=== PATIENT | male | born 1945 | race Caucasian/White ===

== ENCOUNTER 2024-02-03 11:13 | Emergency (ER) | payer OTHER ==
[2024-02-03] MEDS ORDERED: ONDANSETRON 4 MG/2 ML VIAL ONE (11:37)
[2024-02-03] MEDS ORDERED: FENTANYL CITR 100 MCG/2 ML ONE (11:37)
[2024-02-03] MEDS ORDERED: KETOROLAC 30 MG/ML INJ ONE (11:37)
[2024-02-03] MEDS ORDERED: dexAMETHasone 10 MG/ML VIAL ONE (11:37)
[2024-02-03] MEDS ORDERED: NA CHLORIDE 0.9% 500 ML ONE (11:38)
[2024-02-03 12:10] LABS: Absolute Basophils 0.1 K/uL (0-0.5); Absolute Eosinophils 0.2 K/uL (0-0.5); Absolute Lymphocytes (CBC) 1.6 K/uL (0.7-4.9); Absolute Monocytes 1.2 K/uL (0.1-1.3); Absolute Neutrophil 7.7 K/uL (1.8-8.0); Basophils % 0.5 % (0-1.3); Eosinophils % 2.2 % (0-4.4); Hematocrit 39.6 % (39.6-49.0); Hemoglobin 12.9 g/dL (13.6-17.9); Lymphocytes % 14.4 % (15.3-44.8); MCH 32.5 pg (27.0-35.0); MCHC 32.7 g/dL (32.0-36.0); MCV 99.2 fL (80-100); MPV 7.2 fL (7.6-11.3); Monocytes % 11.5 % (3.3-12.3); Neutrophils % 71.4 % (41.7-73.7); Nucleated Red Blood Cells % 0.3 % (0-0); Platelets 410 thou/uL (152-406); RBC Red Blood Cell Count 3.99 M/uL (4.33-5.43); Red Cell Distribution Width 13.7 % (12.1-15.2)
[2024-02-03 12:26] LABS: Albumin 3.3 g/dL (3.4-5.0); Albumin/Globulin Ratio 0.8 (1.1-1.8); Anion Gap 9.6 mEq/L (5.0-15.0); Bilirubin Total 0.4 mg/dL (0.2-1.0); Potassium 3.6 mEq/L (3.5-5.1); Protein, Total 7.3 g/dL (6.4-8.2)
--- NOTE | 2024-02-03 12:30 | RAD REPORT ---
EXAM DESCRIPTION: RAD - Wrist Right 3 View - 02/03/2024 12:20 pm CLINICAL HISTORY: PAIN COMPARISON: No comparisons FINDINGS/IMPRESSION: No acute fracture. 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
--- NOTE | 2024-02-03 13:32 | EDPHYS ---
Physician Documentation [facility] Name: Babak Mancini Age: 78 yrs Sex: Male : 1945 Arrival Date: 02/03/2024 Time: 11:13 Bed 5 Private MD: THOM Physician Raul Haywood HPI: 02/02 13:18 This 78 yrs old Male presents to ER via Ambulatory with complaints of wrist yesica swelling. 13:18 The patient or guardian reports decreased range of motion, pain, swelling, tenderness. yesica The complaints affect the right wrist diffusely. Historical: - Allergies: 11: No Known Allergies; aa5 - PMHx: :29 Hypertensive disorder; Diabetes mellitus; "leaking mitral valve"; aa5 - Immunization history:: Adult Immunizations unknown. - Infectious Disease History:: Denies. - Social history:: Smoking status: Patient denies any tobacco usage or history of. ROS: 13:25 Constitutional: Negative for fever, chills, and weight loss, Eyes: Negative for injury, yesica pain, redness, and discharge, ENT: Negative for injury, pain, and discharge, Neck: Negative for injury, pain, and swelling, Cardiovascular: Negative for chest pain, palpitations, and edema, Respiratory: Negative for shortness of breath, cough, wheezing, and pleuritic chest pain, Exam: 13:28 Constitutional: This is a well developed, well nourished patient who is awake, alert, yesica and in no acute distress. Head/Face: Normocephalic, atraumatic. Eyes: Pupils equal round and reactive to light, extra-ocular motions intact. Lids and lashes normal. Conjunctiva and sclera are non-icteric and not injected. Cornea within normal limits. Periorbital areas with no swelling, redness, or edema. ENT: Nares patent. No nasal discharge, no septal abnormalities noted. Tympanic membranes are normal and external auditory canals are clear. Oropharynx with no redness, swelling, or masses, exudates, or evidence of obstruction, uvula midline. Mucous membranes moist. Neck: Trachea midline, no thyromegaly or masses palpated, and no cervical lymphadenopathy. Supple, full range of motion without nuchal rigidity, or vertebral point tenderness. No Meningismus. Chest/axilla: Normal chest wall appearance and motion. Nontender with no deformity. No lesions are appreciated. Cardiovascular: Regular rate and rhythm with a normal S1 and S2. No gallops, murmurs, or rubs. Normal PMI, no JVD. No pulse deficits. Respiratory: Lungs have equal breath sounds bilaterally, clear to auscultation and percussion. No rales, rhonchi or wheezes noted. No increased work of breathing, no retractions or nasal flaring. Abdomen/GI: Soft, non-tender, with normal bowel sounds. No distension or tympany. No guarding or rebound. No evidence of tenderness throughout. Back: No spinal tenderness. No costovertebral tenderness. Full range of motion. Male : Normal genitalia with no discharge or lesions. Skin: Warm, dry with normal turgor. Normal color with no rashes, no lesions, and no evidence of cellulitis. Neuro: Awake and alert, GCS 15, oriented to person, place, time, and situation. Cranial nerves II-XII grossly intact. Motor strength 5/5 in all extremities. Sensory grossly intact. Cerebellar exam normal. Normal gait. Psych: Awake, alert, with orientation to person, place and time. Behavior, mood, and affect are within normal limits. 13:28 Musculoskeletal/extremity: Extremities: grossly normal except: decreased ROM, erythema, pain, ROM: full active range of motion, full passive range of motion, limited active range of motion due to pain, limited passive range of motion due to pain, Circulation is intact in all extremities. Sensation intact. Compartment Syndrome exam of affected extremity: is normal. Joints: effusion, pain at rest, painful range of motion, swelling, tenderness, Weight bearing: able to fully bear weight, Tendon exam: Vital Signs: 11:28 BP 145 / 69; Pulse 62; Resp 18 S; Temp 97.8(TE); Pulse Ox 100% on R/A; Weight 108.86 kg aa5 (R); Height 6 ft. 0 in. (R); 13:25 BP 142 / 62; Pulse 64; Resp 18; Pulse Ox 99% ; nj1 11:28 Body Mass Index 32.55 (108.86 kg, 182.88 cm) aa5 MDM: 11:25 Patient medically screened. [facility] 13:29 Differential diagnosis: closed fracture, contusion, abrasion, tendonitis. Data [facility] reviewed: vital signs, nurses notes, lab test result(s), radiologic studies, plain films. Consideration of Admission/Observation Escalation of care including admission/observation considered. I considered the following discharge prescriptions or medication management in the emergency department Medications were administered in the Emergency Department. See MAR. Independent interpretation of the following test(s) in the Emergency Department X-Ray: My interpretation is no fx , no gas. Test considered but Not performed: CT: no ct wrist. Historians other than the Patient: Spouse/Significant Other: well informed. Care significantly affected by the following chronic conditions: Diabetes, Hypertension. 02/02 11:26 Order name: CBC with Diff; Complete Time: 12:59 [facility] 02/02 11:26 Order name: Comprehensive Metabolic Panel; Complete Time: 12:59 [facility] 02/02 11:33 Order name: Uric Acid; Complete Time: 12:59 [facility] 02/02 11:33 Order name: Wrist Right 3 View XRAY; Complete Time: 12:59 [facility] 02/02 11:33 Order name: Ice pack; Complete Time: 12:11 [facility] 02/02 13:18 Order name: Splint - Volar Wrist Splint: velcro; Complete Time: 13:24 [facility] Administered Medications: 11:31 CANCELLED (Duplicate Order): [id number] mg IVP once [facility] 11:32 CANCELLED (Duplicate Order): [id number] mg IVP once; dilute with 10 mL 0.9% NaCl; [facility] give over 2 minutes 11:32 CANCELLED (Duplicate Order): [id number] mg IVP once [facility] 11:32 CANCELLED (Duplicate Order): [id number] mg PO once [facility] 11:50 Drug: NS 0.9% IV 500 ml IV at bolus once Route: IV; Rate: bolus; Site: left antecubital;nj1 12:43 Follow up: Response: No adverse reaction; IV Status: Completed infusion; IV Intake: nj1 500ml 11:51 Drug: Ketorolac IVP 15 mg IVP once Route: IVP; Site: left antecubital; nj1 12:43 Follow up: Response: No adverse reaction nj1 11:52 Drug: Ondansetron IVP 4 mg IVP once; over 2 minutes Route: IVP; Site: left antecubital; nj1 12:43 Follow up: Response: No adverse reaction nj1 11:54 Drug: Decadron - Dexamethasone IVP 10 mg IVP once Route: IVP; Site: left antecubital; nj1 12:43 Follow up: Response: No adverse reaction nj1 11:55 Drug: fentaNYL (PF) IVP 25 mcg IVP once Route: IVP; Site: left antecubital; nj1 12:43 Follow up: Response: No adverse reaction; Pain is unchanged, physician notified nj1 Disposition Summary: 02/03/24 13:31 Discharge Ordered Notes: Location: Home [facility] Problem: new yesica Symptoms: have improved yesica Condition: Stable yesica Diagnosis - Pain in right wrist - inflamatory, arthritis yesica Followup: yesica - With: Private Physician - When: 2 - 3 days - Reason: Recheck today's complaints, Continuance of care, Re-evaluation by your physician Discharge Instructions: - Discharge Summary Sheet yesica - Joint Pain yesica - Arthritis yesica - Musculoskeletal Pain yesica - Wrist Pain, Adult yesica - How to Use Cold Therapy, Wstt-yb-Ibnj yesica - Wrist Pain, Adult, Jshq-yd-Kebb yesica - Arthritis, Rw[place]-ge-Tmeq yesica Forms: - Medication Reconciliation Form yesica - Antibiotic Education yesica - Prescription Opioid Use yesica - Patient Portal Instructions [facility] - Leadership Thank You Letter [facility] Prescriptions: - acetaminophen-codeine 300-30 mg Oral tablet - take 2 tablet ORAL route every 6 hours as needed for pain; 20 tablet; Refills: yesica 0, Product Selection Permitted - dexamethasone 4 mg Oral tablet - take 1 tablet ORAL route daily; 4 tablet; Refills: 0, Product Selection yesica Permitted - diclofenac sodium 50 mg Oral tablet, delayed release (enteric coated) - take 1 tablet ORAL route every 12 hours; 14 tablet; Refills: 0, Product yesica Selection Permitted Signatures: Dispatcher [employer] EDMS Raul Haywood MD MD cha Calderon, Audri, RN RN aa5 Alka Obando RN RN nj1 Corrections: (The following items were deleted from the chart) 11:26 11:26 CBC+H.LAB.BRZ ordered. EDVA EDMS 11: 11:26 COMPREHENSIVE METABOLIC PANEL+C.LAB.BRZ ordered. EDVA EDMS 11:31 11:26 MethylPrednisoLONE IVP 125 mg IVP once ordered. [facility] 11:32 11:26 Famotidine IVP 40 mg IVP once; dilute with 10 mL 0.9% NaCl; give over 2 minutes yesica ordered. [facility] 11:32 11:26 diphenhydrAMINE IVP 50 mg IVP once ordered. [facility] 11:26 predniSONE PO 60 mg PO once ordered. [facility] 11:33 URIC ACID+C.LAB.BRZ ordered. EDMS EDMS
--- NOTE | 2024-02-03 13:32 | ER ---
Nurse's Notes [facility] Name: Babak Mancini Age: 78 yrs Sex: Male : 1945 Arrival Date: 02/03/2024 Time: 11:13 Bed 5 Private MD: Diagnosis: Pain in right wrist-inflamatory, arthritis Presentation: 02/02 11:27 Chief complaint: Patient states: "I think I am having an allergic reaction to cipro aa5 because my right wrist started swelling up last night". Pt denies known injury. Coronavirus screen: At this time, the client does not indicate any symptoms associated with coronavirus-19. Ebola Screen: Patient denies travel to an Ebola-affected area in the 21 days before illness onset. 11:27 Method Of Arrival: Ambulatory aa5 11:28 Initial Sepsis Screen: Does the patient meet any 2 criteria? No. Patient's initial aa5 sepsis screen is negative. Does the patient have a suspected source of infection? No. Patient's initial sepsis screen is negative. Risk Assessment: Do you want to hurt yourself or someone else? Patient reports no desire to harm self or others. Onset of symptoms was January 2024. 11:28 Acuity: ADA 3 aa5 Historical: - Allergies: 11:29 No Known Allergies; aa5 - PMHx: 11:29 Hypertensive disorder; Diabetes mellitus; "leaking mitral valve"; aa5 - Immunization history:: Adult Immunizations unknown. - Infectious Disease History:: Denies. - Social history:: Smoking status: Patient denies any tobacco usage or history of. Screenin:[address] [facility] ED Fall Risk Assessment (Adult) History of falling in the last 3 months, nj1 including since admission No falls in past 3 months (0 pts) Confusion or Disorientation No (0 pts) Intoxicated or Sedated No (0 pts) Impaired Gait No (0 pts) Mobility Assist Device Used No (0 pt) Altered Elimination No (0 pt) Score/Fall Risk Level 0 - 2 = Low Risk Oriented to surroundings, Maintained a safe environment, Hourly rounding (assess needs \\T\\ fall precautionary measures) done. Abuse screen: Denies threats or abuse. Denies injuries from another. Nutritional screening: No deficits noted. Tuberculosis screening: No symptoms or risk factors identified. Assessment: 11:45 General: Appears in no apparent distress. comfortable, Behavior is calm, cooperative, nj1 appropriate for age. 11:45 Pain: Complains of pain in right wrist Pain currently is 9 out of 10 on a pain scale. nj1 Neuro: Level of Consciousness is awake, alert, obeys commands, Oriented to person, place, time, situation. Cardiovascular: Patient's skin is warm and dry. Respiratory: Airway is patent Respiratory effort is even, unlabored. GI:. Musculoskeletal: Range of motion: limited in right wrist Swelling absent present in right wrist. 12:42 Reassessment: Patient appears in no apparent distress at this time. No changes from nj1 previously documented assessment. Patient and/or family updated on plan of care and expected duration. Pain level reassessed. Patient is alert, oriented x 3, equal unlabored respirations, skin warm/dry/pink. 13:24 Reassessment: Patient appears in no apparent distress at this time. Patient is alert, nj1 oriented x 3, equal unlabored respirations, skin warm/dry/pink. Patient states feeling better. Vital Signs: 11:28 BP 145 / 69; Pulse 62; Resp 18 S; Temp 97.8(TE); Pulse Ox 100% on R/A; Weight 108.86 kg aa5 (R); Height 6 ft. 0 in. (R); 13:25 BP 142 / 62; Pulse 64; Resp 18; Pulse Ox 99% ; nj1 11:28 Body Mass Index 32.55 (108.86 kg, 182.88 cm) aa5 ED Course: 11:15 Patient arrived in ED. ts1 11:25 Raul Haywood MD is Attending Physician. yesica 11:27 Arm band placed on. aa5 11:28 Triage completed. aa5 11:32 Alka Obando, ARLYN is Primary Nurse. nj1 11:50 Patient has correct armband on for positive identification. Bed in low position. Call [facility] light in reach. Adult w/ patient. Provided Education on: call light, fall precautions. 11:50 Inserted saline lock: 22 gauge in left antecubital area, using aseptic technique. Blood [facility] collected. 12:12 Ice pack. nj1 12:22 Wrist Right 3 View XRAY In Process Unspecified. EDMS 12:45 Notified ED physician of other patient ready to talk to physician so he can go to the [address] 13:24 Velcro wrist splint applied to right wrist. nj1 13:25 No provider procedures requiring assistance completed. nj1 13:25 IV discontinued, intact, bleeding controlled, Pressure dressing applied. nj1 Administered Medications: 11:31 CANCELLED (Duplicate Order): [id number] mg IVP once [facility] 11:32 CANCELLED (Duplicate Order): [id number] mg IVP once; dilute with 10 mL 0.9% NaCl; yesica give over 2 minutes 11:32 CANCELLED (Duplicate Order): mg IVP once yesica 11:32 CANCELLED (Duplicate Order): [id number] mg PO once yesica 11:50 Drug: NS 0.9% IV 500 ml IV at bolus once Route: IV; Rate: bolus; Site: left antecubital;nj1 12:43 Follow up: Response: No adverse reaction; IV Status: Completed infusion; IV Intake: [facility] 500ml 11:51 Drug: Ketorolac IVP 15 mg IVP once Route: IVP; Site: left antecubital; nj1 12:43 Follow up: Response: No adverse reaction nj1 11:52 Drug: Ondansetron IVP 4 mg IVP once; over 2 minutes Route: IVP; Site: left antecubital; nj1 12:43 Follow up: Response: No adverse reaction nj1 11:54 Drug: Decadron - Dexamethasone IVP 10 mg IVP once Route: IVP; Site: left antecubital; nj1 12:43 Follow up: Response: No adverse reaction nj1 11:55 Drug: fentaNYL (PF) IVP 25 mcg IVP once Route: IVP; Site: left antecubital; nj1 12:43 Follow up: Response: No adverse reaction; Pain is unchanged, physician notified nj1 Medication: 13:26 VIS not applicable for this client. nj1 Intake: 12:43 IV: 500ml; Total: 500ml. nj1 Outcome: 13:31 Discharge ordered by . [facility] 13:42 Discharged to home ambulatory, nj1 13:42 Condition: stable 13:42 Discharge instructions given to patient, Instructed on discharge instructions, follow up and referral plans. medication usage, wound care, Demonstrated understanding of instructions, follow-up care, medications, splint care, Prescriptions given X 3, 13:43 Patient left the ED. nj1 Signatures: Dispatcher [employer] Raul Rosario MD MD cha Calderon, Audri RN RN aa5 Alka Obando RN RN nj1 [facility] PAS PAS ts1 Corrections: (The following items were deleted from the chart) 11:32 11:28 Acuity: ADA 4 aa5 aa5
[2024-02-03 14:04] VITALS: BP 142/62; TEMP 97.8; O2SAT 99
== END 2024-02-03 13:43 | disposition home or self-care (01) ==
LOC: ER 11:13
DX: M13.831 Other specified arthritis, right wrist (principal)
CPT/HCPCS: 96361; 85025; 36415; 84550; 80053; 73110; 96375; 96374; 99284; J3010; J1100; J2405; J7040